=== PATIENT | female | born 1950 | race Caucasian/White ===

== ENCOUNTER 2025-04-06 09:50 | Emergency (ER) | payer MEDICARE, OTHER ==
[2025-04-06 10:13] VITALS: BP 159/76; PULSE 83; RESP 16; TEMP 97.2; BMI 21.4
[2025-04-06] MEDS ORDERED: ACETAMINOPHEN INJECTION 100 ML ONE (11:03)
[2025-04-06] MEDS: ACETAMINOPHEN 1000 MG/100 ML BAG IVPB ONE (11:38)
[2025-04-06 12:10] LABS: ALBUMIN 3.9 g/dl (3.4-5.0); BILIRUBIN,TOTAL 0.5 mg/dl (0.2-1); CALCIUM 9.2 mg/dl (8.5-10.1); CREATININE 0.5 mg/dl (0.6-1.3); POTASSIUM 4.3 mmol/L (3.5-5.1); TOT PROT 6.3 g/dl (6.4-8.2)
[2025-04-06 14:05] LABS: BASOPHILS # 0.03 x10^3/uL (0.01-0.08); EOSINOPHIL % 0.6 % (0.7-5.8); EOSINOPHILS # 0.02 x10^3/uL (0.04-0.36); HEMATOCRIT 39.8 % (34.1-44.9); MCHC 32.7 g/dl (32.2-35.5); MEAN CELL VOLUME 96.6 fl (79.4-94.8); MEAN PLT VOLUME 9.4 fl (9.4-12.3); MONOCYTE # 0.34 x10^3/uL (0.24-0.86); MONOCYTE % 10.7 % (4.7-12.5); PLATELET COUNT 253 x10^3/uL (182-369); RDW 12.8 % (12.4-16.6)
== END 2025-04-06 15:05 | disposition home or self-care (01) ==
LOC: FER 09:50
PROC: 3E033NZ Introduction of Analgesics, Hypnotics, Sedatives into Peripheral Vein, Percutaneous Approach (ICD-10-PCS; principal; 2025-04-06)
DX: R51.9 Headache, unspecified (principal); M54.2 Cervicalgia; R94.31 Abnormal electrocardiogram [ECG] [EKG]
CPT/HCPCS: 36415; 70450-TC; 70480-TC; 80053; 84484; 85025; 93005; 93010; 96374; 99285-25; J0131